=== PATIENT | female | born 1975 | race Caucasian/White ===

== ENCOUNTER 2023-05-09 17:50 | Emergency (ER) | payer OTHER, MEDICARE, SELFPAY ==
[2023-05-09 18:10] VITALS: BP 136/83; PULSE 86; RESP 16; TEMP 36.8; O2SAT 98
--- NOTE | 2023-05-09 18:13 | ED.URI ---
HPI - URI/Sore Throat General Chief Complaint: Upper Respiratory Infection Stated Complaint: CONGETION/SOB/COUGH Source: patient Mode of arrival: ambulatory Limitations: no limitations History of Present Illness HPI Narrative: 47-year-old female presented for complaints of cough for 1 week. Cough is worse at night and feels she has difficulty with full deep breath. Endorses occasional fever up to 101. At the onset she had sinus congestion which is improving, but reports right ear popping. Using Tylenol sinus med and vapor tablets. Daughter with similar symptoms. Denies sob, wheezing, n/v/d. Related Data Allergies Allergy/AdvReac Type Severity Reaction Status Date / Time tetracycline Allergy Mild HIVES/RASH Verified 05/09/23 18:06 Penicillins Allergy Unknown Hives Verified 05/09/23 18:06 Tetanus Vaccines and Toxoid Allergy Unknown Swelling Verified 05/09/23 18:06 Review of Systems Review of Systems: CONSTITUTIONAL: reports fever EYES: Denies visual changes, redness, or discharge. ENT: reports rhinorrhea, congestion, denies sore throat, or otalgia. CARDIOVASCULAR: Denies chest pain, palpitations, or edema. RESPIRATORY: Reports cough, denies sob, wheezing. GASTROINTESTINAL: Denies abdominal pain, nausea, vomiting, or diarrhea. GENITOURINARY: Denies dysuria or hematuria. SKIN: Denies rash, itching, or wounds. MUSCULOSKELETAL: Denies back pain, joint pain, or myalgia. NEUROLOGIC: Denies headache, numbness, tingling, or weakness. All systems reviewed & are unremarkable except as noted in HPI and below PMFSH Past Medical History Medical History Bipolar disorder Surgical History Surgical History History of cholecystectomy Social History Social History Smoking status: Never smoker Alcohol intake: never Comments At time of signature, I have reviewed and agree with nursing past medical, surgical, social and family history unless otherwise noted. Please see nursing chart for further information. There is no relevant family history pertinent to the presenting complaint Exam Narrative: GENERAL: Well-appearing, in no acute distress. EYES: EOMI. No redness or drainage. Conjunctivae normal. ENT: Mucous membranes pink and moist. No rhinorrhea. TMs normal bilaterally, Right with mild clear effusion. Throat normal. Uvula midline. NECK: Normal AROM. Supple. CHEST: No respiratory distress. lungs clear to all soares. HEART: Regular rate and rhythm. No murmur appreciated. ABDOMEN: Soft, nontender, nondistended, normal active bowel sounds. EXTREMITIES: Normal range of motion. No edema. SKIN: Warm, dry, no rash. Capillary refill normal. Normal skin turgor. NEURO: Alert and oriented x3. Gait steady. PSYCH: Normal affect, talkative Course Course Emergency Course: Patient is aware of diagnosis, understands and agrees to treatment plan. Anticipatory guidance given. Patient agrees to follow-up as directed and is aware of reasons to seek care at the emergency department. Portions of this record may have been created with voice recognition software Level of Care: Express Care Visit Vital Signs Vital signs: Vital Signs Temperature 98.3 F 05/09/23 18:10 Pulse Rate 86 05/09/23 18:10 Respiratory Rate 16 05/09/23 18:10 Blood Pressure 136/83 05/09/23 18:10 Pulse Oximetry 98 05/09/23 18:10 Temperature 98.3 F 05/09/23 18:10 Pulse Rate 86 05/09/23 18:10 Respiratory Rate 16 05/09/23 18:10 Blood Pressure 136/83 05/09/23 18:10 Pulse Oximetry 98 05/09/23 18:10 MDM - URI/Sore Throat MDM Narrative Medical decision making narrative: Discussed physical exam findings, reviewed Rxs. Advised supportive measures and signs/symptoms to go to the ER. Pt is appropriate for outpt treatment and f/u. Differential Diagnosis Dif
== END 2023-05-09 18:56 | disposition home or self-care (01) ==
PROVIDERS: Emergency Provider Nurse Practitioner Family; PCP Family Medicine
DX: J40 Bronchitis, not specified as acute or chronic (principal)
CPT/HCPCS: 99203; G0463

== ENCOUNTER 2023-10-22 09:13 | Emergency (ER) | payer OTHER, SELFPAY ==
[2023-10-22 09:21] VITALS: BP 133/81; PULSE 74; RESP 16; TEMP 36.5; O2SAT 98
--- NOTE | 2023-10-22 09:22 | ED.GENADULT ---
HPI - General Adult General Chief complaint: Ear Stated complaint: Sore Throat/Ear Pain Time Seen by Provider: 10/22/23 09:17 Source: patient, RN notes reviewed and old records reviewed Mode of arrival: ambulatory Limitations: no limitations History of Present Illness HPI narrative: 47-year-old female to [facility] Care for complaint of right ear discomfort, sore throat, nasal congestion for 4 days. Patient states that her daughter is currently being treated for an upper respiratory infection. Patient denies fever , chest pain, shortness of breath. Patient able to tolerate fluids by mouth. Related Data Home Medications Medication Instructions Recorded Confirmed sertraline 25 mg tablet 25 mg PO DAILY 10/22/23 10/22/23 Allergies Allergy/AdvReac Type Severity Reaction Status Date / Time tetracycline Allergy Mild HIVES/RASH Verified 10/22/23 09:20 Penicillins Allergy Unknown Hives Verified 10/22/23 09:20 Tetanus Vaccines and Toxoid Allergy Unknown Swelling Verified 10/22/23 09:20 Review of Systems Review of Systems: All systems reviewed & are unremarkable except as noted in HPI and below Constitutional: Constitutional: Reports as per HPI and Denies fever(s) Eyes: Eyes: Reports no additional eye complaints ENT: Reports as per HPI, Reports otalgia ( right), Denies headache(s), Reports nasal congestion and Reports sore throat Cardiovascular: Cardiovascular: Reports no additional cardiovascular complaints, Denies chest pain and Denies dyspnea Respiratory: Respiratory: Reports no additional respiratory complaints, Denies cough and Denies dyspnea Musculoskeletal: Musculoskeletal: Reports no additional musculoskeletal complaints Neurologic: Reports system reviewed and no additional complaints, except as documented Psychiatric: Psychiatric: Reports no additional psychiatric complaints PMFSH Past Medical History Medical History Bipolar disorder Surgical History Surgical History History of cholecystectomy Social History Social History Smoking status: Never smoker Alcohol intake: never Comments At the time of my signature, I reviewed and agree with the nursing past medical, surgical, social, and family history. There is no relevant family history pertinent to the patient complaint. Exam Const: General: cooperative, healthy appearing, comfortable, no acute distress, alert and well nourished Nutritional Appearance: well nourished Orientation/consciousness: patient oriented x3 Limitations: no limitations HENMT: Head: normal to inspection Ears: Abnormal EAC present erythema on the right, edema on the right and EAC tenderness on the right Face/Nose/Sinus: Normal external nose present, Normal nares present, normal facial exam, No erythema and No edema Face and sinus: normal facial exam, no erythema and no edema Mouth: Yes Normal oral and palatal mucosa present Throat: abnormal tonsil bilateral erythema, exudates and hypertrophy 2+, posterior oropharynx abnormal erythema and exudates, uvula not displaced and no uvular edema Eyes: General: appearance normal, both eyes and all related structures Neck: Neck: normal visual inspection, full ROM and no meningeal signs Lymphatic: no lymphadenopathy noted and no lymphedema noted Chest: Chest palpation & inspection: normal inspection of the chest Resp: Effort & Inspection: normal respiratory effort and able to speak in complete sentences Auscultation: clear to auscultation bilaterally Cardio: Jugular venous distension: no JVD Rate: regular rate Rhythm: regular rhythm Back/Spine/Pelvis: Cervical Spine: cervical ROM normal Skin: General skin exam: normal color, no rashes or lesions noted and turgor normal Neuro: General: patient oriented x3, gait normal, moves all extremities and no m
== END 2023-10-22 10:06 | disposition home or self-care (01) ==
PROVIDERS: Emergency Provider Nurse Practitioner Family
DX: J02.0 Streptococcal pharyngitis (principal); H60.501 Unspecified acute noninfective otitis externa, right ear
CPT/HCPCS: 87081; 87880; 99213; G0463